=== PATIENT | female | born 1960 | race Caucasian/White ===

== ENCOUNTER 2019-07-13 23:26 | Emergency (ER) | payer OTHER ==
[~2019-07-13] VITALS: Ht 160 cm; Wt 80.3 kg
[2019-07-13 23:34] VITALS: BP 100/70
--- NOTE | 2019-07-13 23:37 | NUR ---
TO LOBBY A/W BED AMBULATORY
[2019-07-14 00:21] LABS: BASOPHILS # (AUTO) 0.1 K/uL (0.00-0.22); BASOPHILS % (AUTO) 0.6 % (0.0-2.0); EOSINOPHILS # (AUTO) 0.6 K/uL (0-0.4); EOSINOPHILS % (AUTO) 6.3 % (0.0-4.0); HEMATOCRIT 36.3 % (36-48); HEMOGLOBIN 11.9 g/dL (12.0-16.0); LYMPHOCYTES # (AUTO) 2.8 K/uL (2.5-16.5); LYMPHOCYTES % (AUTO) 30.5 % (20.5-51.1); MEAN CORPUSCULAR HEMOGLOBIN 27 pg (27-31); MEAN CORPUSCULAR HGB CONC 33 g/dL (33-37); MEAN CORPUSCULAR VOLUME 83.8 fL (80-94); MONOCYTES # (AUTO) 0.6 K/uL (0.8-1.0); MONOCYTES % (AUTO) 6.4 % (1.7-9.3); NEUTROPHILS # (AUTO) 5.1 K/uL (1.8-7.7); NEUTROPHILS % (AUTO) 56.2 % (42.2-75.2); PLATELET COUNT (AUTO) 272 K/uL (140-450); RED BLOOD CELL COUNT(AUTO) 4.33 MIL/uL (4.20-5.40); WHITE BLOOD COUNT (AUTO) 9.1 K/uL (4.8-10.8)
[2019-07-14 00:36] LABS: ANION GAP 12.3 (8-16); CARBON DIOXIDE 29.6 mmol/L (21-32); CREATININE 1.4 mg/dL (0.6-1.3); POTASSIUM 3.9 mmol/L (3.5-5.1)
[2019-07-14 00:42] LABS: ALBUMIN 3.7 g/dL (3.4-5.0); TOTAL BILIRUBIN 0.4 mg/dL (0.0-1.0)
--- NOTE | 2019-07-14 01:13 | NUR ---
PT TAKEN TO BED 1
--- NOTE | 2019-07-14 01:33 | NUR ---
Dr. Aguilar examining patient.
--- NOTE | 2019-07-14 01:36 | NUR ---
59 Y/O FEMALE C/O BILATERAL FOOT SWELLING AND PAIN X 4 DAYS. MINOR SWELLING NOTED, NO VISIBLE DEFORMITIES OR BRUISING. 7/10 ACHING PAIN. PT ABLE TO AMBULATE, PAIN WORSE UPON AMBULATION. +CMS. RR EVEN AND UNLABORED. PT CALM AND PLEASANT. POSITIONED FOR COMFORT, BED LOCKED AND IN LOW POSITION. VSS MEDHX: DM, TIA ALLERGIES: CODIENE
[2019-07-14 01:47] VITALS: BP 100/70
--- NOTE | 2019-07-14 01:47 | NUR ---
Patient discharged with v/s stable. Written and verbal after care instructions given and explained. Patient alert, oriented and verbalized understanding of instructions. Ambulatory with steady gait. All questions addressed prior to discharge. ID band removed. Patient advised to follow up with PMD. Rx of MOTRIN AND KEFLEX given. Patient educated on indication of medication including possible reaction and side effects. Opportunity to ask questions provided and answered.
== END 2019-07-14 01:47 | disposition home or self-care (01) ==
LOC: MED 23:26
DX: L03.116 Cellulitis of left lower limb (principal); L03.115 Cellulitis of right lower limb; F17.210 Nicotine dependence, cigarettes, uncomplicated; I10 Essential (primary) hypertension; Z86.73 Personal history of transient ischemic attack (TIA), and cerebral infarction without residual deficits; Z98.890 Other specified postprocedural states
CPT/HCPCS: 36415; 80053; 83880; 84484; 85025; 99283

== ENCOUNTER 2019-12-24 14:59 | Emergency (ER) | payer OTHER ==
[~2019-12-24] VITALS: Ht 162.6 cm; Wt 90.7 kg
[2019-12-24 15:07] VITALS: BP 134/60
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
[2019-12-24] MEDS ORDERED: KETOROLAC 60 MG/2 ML VIAL IM ONE (15:40)
--- NOTE | 2019-12-24 15:46 | NUR ---
DR. CORDERO AWARE THAT PT CLAIMS TO HAVE KIDNEY FAILURE, PER DR. CONSUELO ANDRADE TO ADMIN THE TORADOL
--- NOTE | 2019-12-24 15:56 | NUR ---
XRAY AT BEDSIDE
--- NOTE | 2019-12-24 16:24 | NUR ---
Patient discharged with v/s stable. Written and verbal after care instructions given and explained. Patient alert, oriented and verbalized understanding of instructions. Ambulatory with steady gait W/ 4 WHEEL WALKER. All questions addressed prior to discharge. ID band removed. Patient advised to follow up with PMD. Rx of TRAMADOL given. Patient educated on indication of medication including possible reaction and side effects. Opportunity to ask questions provided and answered.
[2019-12-24 16:25] VITALS: BP 139/73
== END 2019-12-24 16:24 | disposition home or self-care (01) ==
LOC: MED 14:59
DX: S90.32XA Contusion of left foot, initial encounter (principal); F17.210 Nicotine dependence, cigarettes, uncomplicated; E11.9 Type 2 diabetes mellitus without complications; I10 Essential (primary) hypertension; Z71.6 Tobacco abuse counseling; Z88.5 Allergy status to narcotic agent; Z98.890 Other specified postprocedural states; Z86.73 Personal history of transient ischemic attack (TIA), and cerebral infarction without residual deficits; W22.8XXA Striking against or struck by other objects, initial encounter; Y93.89 Activity, other specified; Y92.89 Other specified places as the place of occurrence of the external cause; Y99.8 Other external cause status
CPT/HCPCS: 29515; 73630; 96372; 99283; J1885; Q0092

== ENCOUNTER 2020-02-07 17:22 | Emergency (ER) | payer OTHER ==
[~2020-02-07] VITALS: Ht 167.6 cm; Wt 59.0 kg
[2020-02-07 17:56] VITALS: BP 145/52
--- NOTE | 2020-02-07 18:03 | NUR ---
AMBULATED TO ROOM 3
--- NOTE | 2020-02-07 19:30 | NUR ---
REPORT GIVEN TO TESS GUZMAN, TRANSFER OF CARE AT THIS TIME
--- NOTE | 2020-02-07 19:35 | NUR ---
59 Y/O FEMALE C/O CHEST PAIN FOR ONE WEEK. PT DECRIBES SENSATIONS "PINS AND NEEDLES" ON HER L UPPER CHEST WIHT L SIDED ARM WEAKNESS. RESP EVEN AND UNLABORED. EQUAL BILAT DUMP TRUCK OPERATOR STRENGTH, NO FACIAL ASYMMETRY NOTED. PUPPILS 2MM, BRISK RETURN, PERRL. PMH: DM, HTN, STAGE 1 KIDNEY FAILURE, 2 CVA, 2 BRAIN ANEURYSMS ALLERGIES: CODEINE
[2020-02-07 19:38] LABS: BASOPHILS # (AUTO) 0.1 K/uL (0.00-0.22); EOSINOPHILS # (AUTO) 0.6 K/uL (0-0.4); HEMOGLOBIN 11.9 g/dL (12.0-16.0); LYMPHOCYTES # (AUTO) 2.5 K/uL (2.5-16.5); LYMPHOCYTES % (AUTO) 26.9 % (20.5-51.1); MEAN CORPUSCULAR HEMOGLOBIN 28 pg (27-31); MEAN CORPUSCULAR HGB CONC 33 g/dL (33-37); MEAN CORPUSCULAR VOLUME 85.7 fL (80-94); MONOCYTES # (AUTO) 0.4 K/uL (0.8-1.0); MONOCYTES % (AUTO) 4.3 % (1.7-9.3); NEUTROPHILS # (AUTO) 5.6 K/uL (1.8-7.7); NEUTROPHILS % (AUTO) 60.8 % (42.2-75.2); PLATELET COUNT (AUTO) 250 K/uL (140-450); RED CELL DISTRIBUTION WIDTH 14.6 % (11.6-13.7); WHITE BLOOD COUNT (AUTO) 9.2 K/uL (4.8-10.8)
[2020-02-07 19:56] LABS: ALBUMIN 3.3 g/dL (3.4-5.0); ANION GAP 14.3 (8-16); CARBON DIOXIDE 24.6 mmol/L (21-32); CREATININE 1.5 mg/dL (0.6-1.3); POTASSIUM 3.9 mmol/L (3.5-5.1); TOTAL BILIRUBIN 0.4 mg/dL (0.0-1.0)
--- NOTE | 2020-02-07 20:24 | NUR ---
Dr. Vargas examining patient.
[2020-02-07 20:35] VITALS: BP 109/61
--- NOTE | 2020-02-07 20:35 | NUR ---
Patient discharged with v/s stable. Written and verbal after care instructions given and explained. Patient verbalized understanding. Ambulatory with steady gait. All questions addressed prior to discharge. Advised to follow up with PMD.
== END 2020-02-07 20:35 | disposition home or self-care (01) ==
LOC: MED 17:22
DX: R07.9 Chest pain, unspecified (principal); E78.5 Hyperlipidemia, unspecified; E11.9 Type 2 diabetes mellitus without complications; I10 Essential (primary) hypertension; N28.9 Disorder of kidney and ureter, unspecified; I63.9 Cerebral infarction, unspecified; I67.1 Cerebral aneurysm, nonruptured; Z98.890 Other specified postprocedural states
CPT/HCPCS: 36415; 71045; 80053; 83880; 84484; 85025; 93005; 99285; Q0092

== ENCOUNTER 2020-04-30 12:03 | Emergency (ER) | payer OTHER ==
[~2020-04-30] VITALS: Ht 162.6 cm; Wt 81.6 kg
--- NOTE | 2020-04-30 12:15 | NUR ---
AMBULATED TO BED 12
[2020-04-30 12:17] VITALS: BP 144/76
--- NOTE | 2020-04-30 12:26 | NUR ---
59 Y/O F C/C LEFT SHOULDER PAIN X 10 WEEKS. PER PT WOKE UP ONE DAY AND FELT PAIN. HAS BEEN TAKEN RX OTC WITH NO RELEASE, R.I.C.E USED WITH NO RELIEF. PAIN /. LIMITED ROM; CMS WNL. PT PRESENTS AMBULATORY,EUPNIC,A/OX4. ALLERGIES CODEINE. HX HTN,DM,STROKE. RX DOES NOT RECALL. NO NVD. SIDE RAIL X1.
[2020-04-30] MEDS: KETOROLAC 30 MG/ML VIAL IM ONE (12:44)
[2020-04-30 13:33] VITALS: BP 135/72
== END 2020-04-30 13:34 | disposition home or self-care (01) ==
LOC: MED 12:03
DX: M25.512 Pain in left shoulder (principal); M79.10 Myalgia, unspecified site; E11.9 Type 2 diabetes mellitus without complications; I63.9 Cerebral infarction, unspecified; I10 Essential (primary) hypertension; Z88.5 Allergy status to narcotic agent
CPT/HCPCS: 96372; 99283; J1885

== ENCOUNTER 2020-05-07 11:53 | Emergency (ER) | payer OTHER ==
[~2020-05-07] VITALS: Ht 162.6 cm; Wt 84.8 kg
[2020-05-07 12:00] VITALS: BP 126/85
--- NOTE | 2020-05-07 12:16 | NUR ---
59 Y/O FEMALE PT C/O PROGRESSIVELY WORSENING LEFT SHOULDER PAIN FOR 3 MONS. DENIES TRAUMA/IMJURY. REPORS HAVING RUNNY NOSE, SNEEZINGS, MILD DRY COUGH, AND SOB FOR 3 DAYS. DENIES FEVER, CHILLS, OR SICK CONTACTS. PMH: HTN, DM, ARTHRITIS
[2020-05-07] MEDS ORDERED: KETOROLAC 30 MG/ML VIAL IM ONE (12:55)
--- NOTE | 2020-05-07 13:06 | NUR ---
Covid swab collected and sent to lab.
[2020-05-07 13:21] VITALS: BP 122/79
--- NOTE | 2020-05-07 13:22 | NUR ---
Patient discharged with v/s stable. Written and verbal after care instructions given and explained. Patient alert, oriented and verbalized understanding of instructions. Ambulatory with steady gait. All questions addressed prior to discharge. ID band removed. Patient advised to follow up with PMD. Rx of Voltaren 1% topical gel, Naproxen 375mg given. Patient educated on indication of medication including possible reaction and side effects. Opportunity to ask questions provided and answered.
== END 2020-05-07 13:22 | disposition home or self-care (01) ==
LOC: MED 11:53
DX: M25.512 Pain in left shoulder (principal); E11.9 Type 2 diabetes mellitus without complications; F17.210 Nicotine dependence, cigarettes, uncomplicated; I10 Essential (primary) hypertension; I63.9 Cerebral infarction, unspecified; Z88.5 Allergy status to narcotic agent; Z20.828 Contact with and (suspected) exposure to other viral communicable diseases
CPT/HCPCS: 82948; 96372; 99283; J1885; U0003

== ENCOUNTER 2020-07-06 03:19 | Emergency (ER) | payer OTHER ==
[~2020-07-06] VITALS: Ht 162.6 cm; Wt 82.1 kg
[2020-07-06] MEDS ORDERED: NACL 0.9% 1,000 ML IV ONE ×2 (03:30→05:50)
[2020-07-06] MEDS ORDERED: ONDANSETRON 4 MG/2 ML VIAL IVP ONE (03:35)
[2020-07-06 03:57] VITALS: BP 121/65
--- NOTE | 2020-07-06 04:00 | NUR ---
to ED bed 12
--- NOTE | 2020-07-06 04:59 | NUR ---
LAB CALLED, BLOOD WAS HEMOLYZED, REDRAW DONE AND LABS WALKED TO LAB
[2020-07-06 05:11] LABS: BASOPHILS # (AUTO) 0.1 K/uL (0.00-0.22); BASOPHILS % (AUTO) 0.7 % (0.0-2.0); EOSINOPHILS # (AUTO) 0.7 K/uL (0-0.4); EOSINOPHILS % (AUTO) 6.1 % (0.0-4.0); HEMATOCRIT 35.3 % (36-48); HEMOGLOBIN 11.6 g/dL (12.0-16.0); LYMPHOCYTES # (AUTO) 2.7 K/uL (2.5-16.5); LYMPHOCYTES % (AUTO) 22.3 % (20.5-51.1); MEAN CORPUSCULAR HEMOGLOBIN 28 pg (27-31); MEAN CORPUSCULAR HGB CONC 33 g/dL (33-37); MEAN CORPUSCULAR VOLUME 84.2 fL (80-94); MONOCYTES # (AUTO) 0.6 K/uL (0.8-1.0); MONOCYTES % (AUTO) 4.8 % (1.7-9.3); NEUTROPHILS # (AUTO) 8.1 K/uL (1.8-7.7); NEUTROPHILS % (AUTO) 66.1 % (42.2-75.2); PLATELET COUNT (AUTO) 246 K/uL (140-450); RED CELL DISTRIBUTION WIDTH 14.1 % (11.6-13.7); WHITE BLOOD COUNT (AUTO) 12.2 K/uL (4.8-10.8)
[2020-07-06 05:41] LABS: ALBUMIN 3.2 g/dL (3.4-5.0); ANION GAP 11.4 (8-16); CARBON DIOXIDE 27.5 mmol/L (21-32); CREATININE 2.3 mg/dL (0.6-1.3); POTASSIUM 3.9 mmol/L (3.5-5.1); TOTAL BILIRUBIN 0.3 mg/dL (0.0-1.0)
--- NOTE | 2020-07-06 06:13 | NUR ---
YASH Vasquez MD AWARE. NS BOLUS ORDERED
--- NOTE | 2020-07-06 06:20 | NUR ---
PT AMBULATED TO RESTROOM WITH STEADY GAIT
--- NOTE | 2020-07-06 06:43 | NUR ---
PT COMING IN DUE TO ELEVATED BS. PT WAS FEELING NAUSEA, DENIES VOMITING. DENIES HAVING ANY PAIN. PT TOOK HER INSULIN AT HOME BUT HER BS DID NOT GO DOWN. A/O X 4. AFEBRILE, DENIES SOB. PT PLACED IN BED, BED IN LOWEST POSITION AND SIDERAIL UP X 1. ALLERGY - CODEINE HX - KIDNEY DISEASE, DM, CVA, HTN, ASTHMA, COPD
--- NOTE | 2020-07-06 07:08 | NUR ---
Pt report given to YOVANNY GUZMAN. Transfer of care at this time.
--- NOTE | 2020-07-06 07:09 | NUR ---
Receive report from MEGAN Morrow, transfer of care at this time.
--- NOTE | 2020-07-06 07:26 | NUR ---
Pt resting, visible equal rise and fall of chest, VSS, will continue to monitor.
[2020-07-06 07:53] VITALS: BP 123/67
--- NOTE | 2020-07-16 16:52 | NUR ---
LATE ENTRY -- NORMAL SALINE ENDED 07/06/20 0761
== END 2020-07-06 07:53 | disposition home or self-care (01) ==
LOC: MED 03:19
DX: E11.65 Type 2 diabetes mellitus with hyperglycemia (principal); N17.9 Acute kidney failure, unspecified; I10 Essential (primary) hypertension; Z86.73 Personal history of transient ischemic attack (TIA), and cerebral infarction without residual deficits; Z88.5 Allergy status to narcotic agent
CPT/HCPCS: 36415; 80053; 82009; 82948; 85025; 96361; 96374; 99283; J7030

== ENCOUNTER 2020-07-11 10:44 | Emergency (ER) | payer OTHER ==
[~2020-07-11] VITALS: Ht 162.6 cm; Wt 82.1 kg
[2020-07-11 11:28] VITALS: BP 124/67
[2020-07-11] MEDS ORDERED: NACL 0.9% 1,000 ML IV ONE (12:40)
--- NOTE | 2020-07-11 12:52 | NUR ---
PT AMB TO BED 11. LAB AT BEDSIDE.
[2020-07-11 13:14] LABS: BASOPHILS # (AUTO) 0.2 K/uL (0.00-0.22); BASOPHILS % (AUTO) 1.4 % (0.0-2.0); EOSINOPHILS # (AUTO) 0.8 K/uL (0-0.4); EOSINOPHILS % (AUTO) 7.3 % (0.0-4.0); HEMATOCRIT 37.2 % (36-48); HEMOGLOBIN 12.3 g/dL (12.0-16.0); LYMPHOCYTES # (AUTO) 2.5 K/uL (2.5-16.5); LYMPHOCYTES % (AUTO) 21.8 % (20.5-51.1); MEAN CORPUSCULAR HEMOGLOBIN 28 pg (27-31); MEAN CORPUSCULAR HGB CONC 33 g/dL (33-37); MEAN CORPUSCULAR VOLUME 84.5 fL (80-94); MONOCYTES # (AUTO) 0.5 K/uL (0.8-1.0); MONOCYTES % (AUTO) 4.2 % (1.7-9.3); NEUTROPHILS # (AUTO) 7.4 K/uL (1.8-7.7); NEUTROPHILS % (AUTO) 65.3 % (42.2-75.2); PLATELET COUNT (AUTO) 301 K/uL (140-450); RED CELL DISTRIBUTION WIDTH 14.1 % (11.6-13.7); WHITE BLOOD COUNT (AUTO) 11.4 K/uL (4.8-10.8)
[2020-07-11 13:18] LABS: APPEARANCE,URINE CLEAR (CLEAR); BILIRUBIN,URINE NEGATIVE (NEGATIVE); BLOOD, URINE NEGATIVE (NEGATIVE); COLOR,URINE YELLOW (YELLOW); NITRITE, URINE NEGATIVE (NEGATIVE); UGLUCOSE 3+ (NEGATIVE)
[2020-07-11 13:29] LABS: LEUKOCYTE ESTERASE ,URINE TRACE (NEGATIVE); RBC,URINE 0-5 /HPF (0-5); WBC,URINE 0-5 /HPF (0-5)
[2020-07-11 13:55] LABS: ALBUMIN 3.6 g/dL (3.4-5.0); ANION GAP 11.8 (8-16); CARBON DIOXIDE 27.9 mmol/L (21-32); MAGNESIUM 1.9 mg/dL (1.8-2.4); POTASSIUM 4.7 mmol/L (3.5-5.1); TOTAL BILIRUBIN 0.4 mg/dL (0.0-1.0)
[2020-07-11 14:14] LABS: CREATININE 1.9 mg/dL (0.6-1.3)
[2020-07-11 14:49] VITALS: BP 121/78
--- NOTE | 2020-07-16 16:56 | NUR ---
LATE ENTRY -- NORMAL SALINE STARTED AT 1240 07/11/20 ENDED 07/11/20 AT 1340
== END 2020-07-11 14:49 | disposition home or self-care (01) ==
LOC: MED 10:44
DX: R73.9 Hyperglycemia, unspecified (principal); J44.9 Chronic obstructive pulmonary disease, unspecified; I10 Essential (primary) hypertension; Z86.73 Personal history of transient ischemic attack (TIA), and cerebral infarction without residual deficits; Z88.5 Allergy status to narcotic agent
CPT/HCPCS: 36415; 80053; 81001; 82150; 83690; 83735; 85025; 96360; 99283; G0482; J7030; 81003

== ENCOUNTER 2020-09-10 10:56 | Inpatient (IN) | payer OTHER, SELFPAY ==
[~2020-09-10] VITALS: Ht 162.6 cm; Wt 82.1 kg
[2020-09-10 11:12] VITALS: BP 198/62
--- NOTE | 2020-09-10 11:26 | NUR ---
PATIENT WHEELCHAIR ASSISTED TO BED 10.
--- NOTE | 2020-09-10 11:27 | NUR ---
CALLED CT DEPT TO ACTIVATE CODE BRAIN PER DR. GERMAIN. S/W WILL IN RAD DEPT.
--- NOTE | 2020-09-10 11:30 | NUR ---
PT TAKEN TO CT VIA CASE
--- NOTE | 2020-09-10 11:40 | NUR ---
PT BACK FROM CT
[2020-09-10 12:19] LABS: ALBUMIN 3.3 g/dL (3.4-5.0); ANION GAP 15.4 (8-16); CARBON DIOXIDE 23.1 mmol/L (21-32); CREATININE 2.7 mg/dL (0.6-1.3); POTASSIUM 4.5 mmol/L (3.5-5.1); TOTAL BILIRUBIN 0.5 mg/dL (0.0-1.0)
[2020-09-10] MEDS ORDERED: NACL 0.9% 1,000 ML IV ONE (12:25)
[2020-09-10 13:15] LABS: BASOPHILS # (AUTO) 0.1 K/uL (0.00-0.22); BASOPHILS % (AUTO) 0.9 % (0.0-2.0); EOSINOPHILS # (AUTO) 0.8 K/uL (0-0.4); EOSINOPHILS % (AUTO) 7.3 % (0.0-4.0); HEMATOCRIT 36.2 % (36-48); HEMOGLOBIN 11.9 g/dL (12.0-16.0); LYMPHOCYTES # (AUTO) 2.1 K/uL (2.5-16.5); LYMPHOCYTES % (AUTO) 17.7 % (20.5-51.1); MEAN CORPUSCULAR HEMOGLOBIN 27 pg (27-31); MEAN CORPUSCULAR HGB CONC 33 g/dL (33-37); MEAN CORPUSCULAR VOLUME 83.4 fL (80-94); MONOCYTES # (AUTO) 0.5 K/uL (0.8-1.0); MONOCYTES % (AUTO) 4.1 % (1.7-9.3); NEUTROPHILS # (AUTO) 8.1 K/uL (1.8-7.7); PLATELET COUNT (AUTO) 269 K/uL (140-450); RED BLOOD CELL COUNT(AUTO) 4.35 MIL/uL (4.20-5.40); WHITE BLOOD COUNT (AUTO) 11.6 K/uL (4.8-10.8)
[2020-09-10 13:17] LABS: APPEARANCE,URINE HAZY (CLEAR); BILIRUBIN,URINE NEGATIVE (NEGATIVE); BLOOD, URINE 3+ (NEGATIVE); COLOR,URINE YELLOW (YELLOW); LEUKOCYTE ESTERASE ,URINE TRACE (NEGATIVE); NITRITE, URINE NEGATIVE (NEGATIVE); PH,URINE 5.5 (5.0-9.0); UGLUCOSE NEGATIVE (NEGATIVE)
[2020-09-10 13:19] LABS: RBC,URINE 50-80 /HPF (0-5); WBC,URINE 0-5 /HPF (0-5)
[2020-09-10 13:20] LABS: URINE AMORPHOUS URATE 1+ /HPF (None Seen)
[2020-09-10 13:27] LABS: BARBITURATE, URINE NEGATIVE ng/ml (NEG <=200); BENZODIAZEPINE, URINE NEGATIVE ng/mL (NEG <=200); CANNABINOID, URINE NEGATIVE ng/mL (NEG <=50); COCAINE, URINE NEGATIVE ng/mL (NEG <=300); OPIATE, URINE NEGATIVE ng/mL (NEG <=2000); PHENCYCLIDINE SCREEN,URINE NEGATIVE ng/mL (NEG <=25)
--- NOTE | 2020-09-10 13:48 | NUR ---
PT ON THE PHONE IN ROOM TALKING, SPEECH IS CLEAR, DOES NOT APPEAR IN DISTRESS AT THIS TIME.
[2020-09-10] MEDS ORDERED: cefTRIAXone 1,000 MG VIAL ONE (14:07)
--- NOTE | 2020-09-10 14:26 | NUR ---
LEVI PETERS SWABBED AND WALKED TO LAB
[2020-09-10] MEDS ORDERED: ONDANSETRON 4 MG/2 ML VIAL IVP PRN (14:35)
[2020-09-10] MEDS ORDERED: CLONIDINE HYDROCHLORIDE 0.1 MG TAB PO PRN (14:40)
[2020-09-10] MEDS ORDERED: ASPI-1822 PO (15:15)
[2020-09-10] MEDS ORDERED: HYDR-1096 PO (15:15)
[2020-09-10] MEDS ORDERED: INSU100V3 SQ (15:15)
[2020-09-10] MEDS ORDERED: INSU100I7 SQ (15:15)
[2020-09-10] MEDS ORDERED: VIT1TABL36 PO (15:15)
[2020-09-10] MEDS ORDERED: BUSP-83 PO (15:15)
[2020-09-10] MEDS ORDERED: AMLO10TA PO (15:15)
[2020-09-10] MEDS ORDERED: BENA40TA PO (15:15)
[2020-09-10] MEDS ORDERED: ATOR40TA PO (15:15)
[2020-09-10 15:55] VITALS: BP 109/56
--- NOTE | 2020-09-10 15:55 | NUR ---
PT ARRIVED FROM ED TO UNIT VIA GURNEY. PT WITH GENERALIZED WEAKNESS. AAOX4, ABLE TO MAKE NEEDS KNOWN. AMBULATORY. RESPIRATIONS ARE EVEN AND UNLABORED TO ROOM AIR. ABDOMEN IS SOFT AND NON-TENDER. SKIN IS JAUNDICED, WARM, DRY, AND INTACT. PT WITH IV ACCESS ON LEFT WRIST 22G, PATENT AND INTACT. CHRONIC BILATERAL SHOULDERS PAIN. CONNECTED TO TELE MONITOR, VS TAKEN, MRSA SWAB COLLECTED. ORIENTED PT TO THE HOSPITAL ENVIRONMENT. SAFETY MEASURES IN PLACE. WILL CONTINUE TO MONITOR.
--- NOTE | 2020-09-10 15:56 | NUR ---
Patient will be admitted to care of YADIRA ZUNIGA. Admited to TELEMETRY. Will go to room 123A. Belongings list completed. Report to ERIC GUZMAN.
--- NOTE | 2020-09-10 17:17 | NUR ---
PATIENT ASLEEP IN BED WITH RIGHT LATERAL POSITION. NO ACUTE DISTRESS NOTED, WILL CONTINUE TO MONITOR.
[2020-09-10] MEDS: NACL 0.9% 1,000 ML IV SCH (18:32)
--- NOTE | 2020-09-10 19:20 | NUR ---
RECEIVED BEDSIDE REPORT FROM DAY SHIFT NURSE. PATIENT IS AWAKE, TALKING ON THE PHONE. RESPIRATION EVEN UNLABORED ON ROOM AIR. NO DISTRESS NOTED. SKIN IS WARM AND DRY. IV PATENT AND INTACT. PLAN OF CARE WAS DISCUSSED. ALL SAFETY MEASURES IN PLACE. BED IS AT LOW POSITION. CALL LIGHT WITHIN REACH. WILL CONTINUE TO MONITOR.
--- NOTE | 2020-09-10 19:25 | NUR ---
ENDORSED PATIENT TO SEAL MIXER RN FOR CONTINUITY OF CARE, PATIENT IN STABLE CONDITION.
[2020-09-10 20:00] VITALS: BP 101/53
[2020-09-10] MEDS ORDERED: DEXTROSE 50% 50 ML SYR IVP PRN (21:20)
[2020-09-10] MEDS ORDERED: INSULIN LANTUS 100 UNITS/ML 10 ML VIAL SUBQ SCH (21:28)
[2020-09-10] MEDS: INSULIN LISPRO SLIDING SCALE 100 UNITS/ML VIAL SUBQ PRN (21:42)
[2020-09-10] MEDS: HYDROXYZINE HYDROCHLORIDE 25 MG TAB PO SCH (21:43)
[2020-09-10] MEDS: BLOOD GLUCOSE MONITORING 1 DEV DEV FS SCH (21:43)
--- NOTE | 2020-09-10 21:45 | NUR ---
ALL SCHEDULED MEDS WERE GIVEN PER ORDER. NO ASE NOTED. WILL CONTINUE TO MONITOR
--- NOTE | 2020-09-10 21:45 | NUR ---
PER PATIENT SHE TAKES LANTUS AT HOME 25 UNITS HS. PER MD ANDRADE TO GIVE.
[2020-09-10] MEDS: traMADol 50 MG TAB PO PRN (22:17)
--- NOTE | 2020-09-10 22:20 | NUR ---
PATIENT COMPLAINED OF SHOULDER PAIN. PRN PAIN MED ADMINISTER PER ORDER. WILL CONTINUE TO MONITOR
[2020-09-11] VITALS: BP 131/76
--- NOTE | 2020-09-11 00:20 | NUR ---
VITALS WERE TAKEN. PATIENT COMPLAINING OF MILD SHOULDER PAIN 3. PRN PAIN MED ADMINISTERED PER ORDER. WILL CONTINUE TO MONITOR
[2020-09-11] MEDS: ACETAMINOPHEN 325 MG TAB PO PRN ×2 (00:21→18:21)
[2020-09-11] MEDS: NACL 0.9% 1,000 ML IV SCH ×3 (00:35→20:35)
--- NOTE | 2020-09-11 03:32 | NUR ---
MADE ROUNDS. PATIENT SLEEPING RESPIRATION EVEN UNLABORED ON ROOM AIR. NO DISTRESS NOTED. WILL CONTINUE TO MONITOR
[2020-09-11 04:00] VITALS: BP 94/48
[2020-09-11 06:01] LABS: BASOPHILS # (AUTO) 0.1 K/uL (0.00-0.22); BASOPHILS % (AUTO) 1.1 % (0.0-2.0); EOSINOPHILS # (AUTO) 0.8 K/uL (0-0.4); EOSINOPHILS % (AUTO) 7.9 % (0.0-4.0); HEMATOCRIT 31.2 % (36-48); HEMOGLOBIN 10.3 g/dL (12.0-16.0); LYMPHOCYTES # (AUTO) 2.5 K/uL (2.5-16.5); MEAN CORPUSCULAR HEMOGLOBIN 28 pg (27-31); MEAN CORPUSCULAR HGB CONC 33 g/dL (33-37); MEAN CORPUSCULAR VOLUME 83.5 fL (80-94); MONOCYTES # (AUTO) 0.5 K/uL (0.8-1.0); MONOCYTES % (AUTO) 5.5 % (1.7-9.3); NEUTROPHILS # (AUTO) 5.9 K/uL (1.8-7.7); NEUTROPHILS % (AUTO) 60.5 % (42.2-75.2); PLATELET COUNT (AUTO) 235 K/uL (140-450); RED BLOOD CELL COUNT(AUTO) 3.74 MIL/uL (4.20-5.40); RED CELL DISTRIBUTION WIDTH 13.8 % (11.6-13.7); WHITE BLOOD COUNT (AUTO) 9.8 K/uL (4.8-10.8)
[2020-09-11 06:20] LABS: ALBUMIN 2.8 g/dL (3.4-5.0); ANION GAP 11.4 (8-16); CARBON DIOXIDE 24.8 mmol/L (21-32); CREATININE 1.9 mg/dL (0.6-1.3); MAGNESIUM 1.9 mg/dL (1.8-2.4); POTASSIUM 4.2 mmol/L (3.5-5.1); TOTAL BILIRUBIN 0.2 mg/dL (0.0-1.0)
[2020-09-11] MEDS: INSULIN LISPRO SLIDING SCALE 100 UNITS/ML VIAL SUBQ PRN ×3 (06:31→20:27)
[2020-09-11] MEDS: BLOOD GLUCOSE MONITORING 1 DEV DEV FS SCH ×4 (06:32→20:29)
--- NOTE | 2020-09-11 07:14 | NUR ---
ENDORSED PATIENT TO DAY SHIFT NURSE FOR CONTINUITY OF CARE
--- NOTE | 2020-09-11 07:15 | NUR ---
RECEIVED ENDORSEMENT FOR CONTINUATION PLAN OF CARE. PATIENT IS IN BED AOX4. IV IN PLACE AND INTACT. SAFETY MEASURES ARE IN PLACE. CALL LIGHTS WITHIN REACH. WILL CONTINUE TO MONITOR NEEDED.
[2020-09-11] MEDS ORDERED: BLOOD GLUCOSE MONITORING 1 DEV DEV FS SCH (07:30)
[2020-09-11 08:00] VITALS: BP 123/69
--- NOTE | 2020-09-11 09:19 | NUR ---
PATIENT HAS BEEN SCREENED AND CATEGORIZED HIGH NUTRITION RISK. PATIENT WILL BE SEEN WITHIN 1-2 DAYS OF ADMISSION. 09/11/20-09/12/[address]
--- NOTE | 2020-09-11 09:30 | NUR ---
MADE ROUNDS AT THIS TIME PT IS SLEEPING NO DISTRESS NOTED DENIES PAIN.
--- NOTE | 2020-09-11 11:27 | NUR ---
BLOOD SUGAR 214 INSULIN COVERAGE GIVEN PT IS STABLE.
[2020-09-11 12:00] VITALS: BP 128/58
--- NOTE | 2020-09-11 12:56 | NUR ---
SOCIAL WORK NOTE: Patient's Orientation Unable To Assess Information Provided By NARCISA PETERCorina - CAREGIVER Comments SW WAS UNABLE TO MEET PATIENT AT BEDSIDE. SW COMPLETED ASSESSMENT WITH PATIENT'S CAREGIVER. CAREGIVER PROVIDED PHONE NUMBER TO SHERMAN FERNANDES, DAUGHTER OF PATIENT. Grounds Manager, Realtionship and Phone Number NARCISA REINOSO CAREGIVER [phone] SHERMAN FERNANDES DAUGHTER [phone] YANA VELA MOTHER [phone] Healthcare Power of Dye Tub Operator No Does Patient Have a POLST No Identifying Problems No Social Work Triggers Is A Social Work Consult Needed No Mandate Report Filed No Explanation Of Identifying Problems PATIENT IS A 60-YEAR-OLD FEMALE ADMITTED FOR UTI AND HERMAN. PATIENT HAS PMHX OF CEREBROVASCULAR ACCIDE. Admitted From Home Pre-Admission Level Of Functioning Status Assist With ADL Level Of Functioning Comment PER CAREGIVER, PATIENT NEEDS ASSISTANCE WITH CLEANING, PREPARING, MEALS, SHOWERING, TRANSPORTATION, AND CHANGING CLOTHES. Prior Resources/Services Used In Last [address] [facility] Prior Resources/Service Comments PATIENT RECEIVES [address] A MON[address] [facility]. Prior DME No Prior DME Used Dialysis Comments N/A Living Situation Apartment Lives With Family Patient Had Caregiver Yes Name and Contact Number Of Designated Caregiver NARCISA REINOSO - [phone] Home Support No Caregiver Issues Financial Issues No Known Financial Issue Referral To The Financial Counselor Needed No Factors/Needs No D/C Needs Identified Pt/Rep Participated In Discharge Plan Yes Patient/Family Agress With Discharge Plan Yes Discharge Plan Comments TENTATIVE DISCHARGE PLAN IS FOR PATIENT TO RETURN HOME. DC Plan Status Initiated
--- NOTE | 2020-09-11 13:09 | NUR ---
DC PLANNIN YRS OLD FEMALE PATIENT WAS ADMITTED FROM HOME WITH A DX OF UTI, HERMAN . PT HAS A HX OF HTN, DM, CHOLESTEROL, CKD AND CVA WITH MILD RIGHT SIDED WEAKNESS . CT HEAD SHOWED NO ACUTE INTRACRANIAL ABNORMALITY. CXR NO ACUTE DISEASE. RAPID COVID TEST NEGATIVE. BLOOD AND URINE CULTURE PENDING. STARTED IV ABX ROCEPHIN AND CONTINUED HOME MEDS. CONSULTED WITH TANK BUILDER HELPER. DC PLAN TO GO HOME WHEN STABLE. CM TO FOLLOW Addendum: 09/12/20 at 1216 by Lacey Davis CM DC TRAFFIC ATTENDANT: FAXED ORDER FOR HOME HEALTH SAFETY EVAL TO [facility]. SPOKE TO RADHA AT [facility] [phone] THEY ARE REVIEWING BUT MOST LIKELY CAN ACCEPT PATIENT. SHE WILL CONTACT ME BACK SHORTLY. PATIENT IS AGREEABLE TO HOME HEALTH. Addendum: 09/12/20 at 1219 by Lacey Davis CM DC TRAFFIC ATTENDANT: RECEIVED A CALL BACK FROM RADHA THEY ARE ABLE TO ACCEPT PATIENT.
[2020-09-11] MEDS: traMADol 50 MG TAB PO PRN (14:32)
--- NOTE | 2020-09-11 15:13 | NUR ---
09/11/20 RD INITIAL ASSESSMENT COMPLETED PLEASE REFER TO NUTRITION ASSESSMENT UNDER CARE ACTIVITY FOR ESTIMATED NUTRITIONAL NEEDS. 1. CONTINUE CCHO, CARDIAC AND MECHANICAL SOFT DIET TOLERATED 2. RD PROVIDED NUTRITION EDUCATION ON DIABETES. PT ACCEPTED 3. RD TO FOLLOW-UP 3-5 DAYS, MODERATE RISK JOSE VELA RD
[2020-09-11 16:00] VITALS: BP 110/53
--- NOTE | 2020-09-11 16:27 | NUR ---
BLOOD SUGAR 134 MG/DL NO INSULIN COVERAGE.
--- NOTE | 2020-09-11 18:41 | NUR ---
PATIENT FEELS NAUSEOUS AND VOMITED, GAVE MEDICATION FOR VOMITING.
--- NOTE | 2020-09-11 19:18 | NUR ---
RECEIVED REPORT FROM DAY SHIFT NURSE. PATIENT IS AWAKE, ALERT, AND COOPERATIVE. RESPIRATION EVEN UNLABORED ON ROOM AIR. NO DISTRESS NOTED. SKIN IS WARM AND DRY. IV PATENT AND INTACT. PLAN OF CARE WAS DISCUSSED. ALL SAFETY MEASURES IN PLACE. BED IS AT LOW POSITION. CALL LIGHT WITHIN REACH. WILL CONTINUE TO MONITOR
--- NOTE | 2020-09-11 19:23 | NUR ---
ENDORSED CONTINUATION PLAN OF CARE TO PARTS CONSULTANT NURSE. PATIENT IN STABLE CONDITION
[2020-09-11 20:00] VITALS: BP 98/86
[2020-09-11] MEDS ORDERED: ATORVASTATIN 20 MG TAB ONE (20:18)
[2020-09-11] MEDS: HYDROXYZINE HYDROCHLORIDE 25 MG TAB PO SCH (20:19)
--- NOTE | 2020-09-11 20:30 | NUR ---
ALL SCHEDULED MEDS WERE GIVEN PER ORDER. WILL CONTINUE TO MONITOR
[2020-09-11] MEDS ORDERED: HYDROXYZINE HYDROCHLORIDE 25 MG TAB PO SCH (21:00)
[2020-09-11] MEDS ORDERED: INSULIN LANTUS 100 UNITS/ML 10 ML VIAL SUBQ SCH ×2 (21:00)
--- NOTE | 2020-09-11 21:24 | NUR ---
MADE ROUNDS. PATIENT ASKED FOR CRACKERS. PROVIDED CRACKERS. WILL CONTINUE TO MONITOR
[2020-09-12] VITALS: BP 125/82
--- NOTE | 2020-09-12 00:25 | NUR ---
HELPED PT AMBULATE TO THE BATHROOM
--- NOTE | 2020-09-12 01:29 | NUR ---
MADE ROUNDS. PATIENT SLEEPING RESPIRATION EVEN UNLABORED ON ROOM AIR. NO DISTRESS NOTED. WILL CONTINUE TO MONITOR
[2020-09-12] MEDS: traMADol 50 MG TAB PO PRN (03:41)
--- NOTE | 2020-09-12 03:41 | NUR ---
PATIENT WOKE UP IN PAIN. COMPLAINING 6/10 SHOULDER PAIN NON-RADIATING. PRN PAIN MED ADMINISTER PER ORDER. WILL CONTINUE TO MONITOR
[2020-09-12 04:00] VITALS: BP 112/79
--- NOTE | 2020-09-12 04:01 | NUR ---
PATIENT ACCIDENTALLY PULLED HER IV. NO ACTIVE BLEEDING NOTED. CANNULA TIP INTACT. INSERTED NEW ONE TO THE RIGHT FOREARM 22G. TOLERATED IT WELL.
[2020-09-12 06:21] LABS: BASOPHILS # (AUTO) 0.1 K/uL (0.00-0.22); EOSINOPHILS # (AUTO) 0.7 K/uL (0-0.4); EOSINOPHILS % (AUTO) 8.1 % (0.0-4.0); HEMATOCRIT 31.7 % (36-48); HEMOGLOBIN 10.6 g/dL (12.0-16.0); LYMPHOCYTES # (AUTO) 2.2 K/uL (2.5-16.5); LYMPHOCYTES % (AUTO) 24.9 % (20.5-51.1); MEAN CORPUSCULAR HEMOGLOBIN 28 pg (27-31); MEAN CORPUSCULAR HGB CONC 34 g/dL (33-37); MEAN CORPUSCULAR VOLUME 82.2 fL (80-94); MONOCYTES # (AUTO) 0.4 K/uL (0.8-1.0); MONOCYTES % (AUTO) 4.4 % (1.7-9.3); NEUTROPHILS # (AUTO) 5.4 K/uL (1.8-7.7); NEUTROPHILS % (AUTO) 61.6 % (42.2-75.2); PLATELET COUNT (AUTO) 224 K/uL (140-450); RED BLOOD CELL COUNT(AUTO) 3.85 MIL/uL (4.20-5.40); RED CELL DISTRIBUTION WIDTH 14.2 % (11.6-13.7); WHITE BLOOD COUNT (AUTO) 8.7 K/uL (4.8-10.8)
[2020-09-12] MEDS: BLOOD GLUCOSE MONITORING 1 DEV DEV FS SCH ×2 (06:30→11:35)
[2020-09-12 06:31] LABS: ALBUMIN 2.8 g/dL (3.4-5.0); ANION GAP 11.2 (8-16); CREATININE 1.5 mg/dL (0.6-1.3); MAGNESIUM 1.8 mg/dL (1.8-2.4); POTASSIUM 4.2 mmol/L (3.5-5.1); THYROID STIMULATING HORMONE 2.43 uIU/mL (0.34-3.74); TOTAL BILIRUBIN 0.2 mg/dL (0.0-1.0)
[2020-09-12] MEDS: NACL 0.9% 1,000 ML IV SCH (06:52)
--- NOTE | 2020-09-12 06:56 | NUR ---
PATIENT WANTS TO TAKE HER HOME MEDS [facility]. EXPLAINED TO THE PATIENT THAT DOCTOR NEEDS TO APPROVE THE MEDICATION PRIOR TO TAKING IT. PATIENT VERBALIZE UNDERSTANDING. WILL ENDORSED TO DAY SHIFT NURSE TO FOLLOW UP WITH MD.
--- NOTE | 2020-09-12 07:13 | NUR ---
ENDORSED PATIENT TO DAY SHIFT NURSE FOR CONTINUITY OF CARE
--- NOTE | 2020-09-12 07:15 | NUR ---
RECEIVED ENDORSEMENT FROM MOTION PICTURE EQUIPMENT SUPERVISOR NURSE FOR CONTINUATION PLAN OF CARE. PATIENT IN BED AOX4. IV SITE IS IN PLACE AND INTACT. PATIENT IS ABLE TO VERBALIZE NEEDS. SAFETY MEASURES ARE IN PLACE. CALL LIGHT WITHIN REACH. WILL CONTINUE TO MONITOR NEEDED.
[2020-09-12 08:00] VITALS: BP 123/62
--- NOTE | 2020-09-12 08:40 | NUR ---
MEDICATION DUE GIVEN CHECK VITAL SIGNS PRIOR TO MEDICATION BP 123/62 UT 71. PT IS STABLE AND AWAKE. NO DISTRESS NOTED.
[2020-09-12] MEDS ORDERED: ASPIRIN 81 MG TAB.CHEW PO SCH (09:00)
[2020-09-12] MEDS ORDERED: BENAZEPRIL 20 MG TAB PO SCH (09:00)
[2020-09-12] MEDS ORDERED: amLODIPine 5 MG TAB PO SCH (09:00)
[2020-09-12] MEDS ORDERED: CEPH500C16 PO (11:07)
--- NOTE | 2020-09-12 11:30 | NUR ---
BLOOD SUGAR 158 MG/DL INSULIN COVERAGE GIVEN
[2020-09-12] MEDS: INSULIN LISPRO SLIDING SCALE 100 UNITS/ML VIAL SUBQ PRN (11:40)
[2020-09-12 12:42] VITALS: BP 123/62
--- NOTE | 2020-09-12 13:40 | NUR ---
PATIENT HAS BEEN DISCHARGED TO HOME WITH HOME HEALTH CONTACTED NAMED [facility]. DISCHARGE INSTRUCTIONS WERE GIVEN. PATIENT WAS MADE AWARE TO FOLLOW UP WITH MEDICAL DOCTOR AFTER 1 WEEK FOR CHECK UP. IV CATH REMOVED. NAME BANDS REMOVED. PATIENTS BELONGINGS WERE WITH PATIENT [facility]. PATIENT WAS PICKED UP BY FAMILY MEMBER.
[2020-09-12] MEDS ORDERED: ATORVASTATIN 20 MG TAB PO SCH (21:00)
[2020-09-13] MEDS ORDERED: busPIRone 5 MG TAB PO SCH (09:00)
== END 2020-09-12 13:40 | disposition home health service (06) | DRG 463 ==
LOC: MED 10:56 → MTU 14:38
PROVIDERS: ADMIT Internal Medicine; ATTEND Internal Medicine
DX: N39.0 Urinary tract infection, site not specified (principal); E11.22 Type 2 diabetes mellitus with diabetic chronic kidney disease; N18.9 Chronic kidney disease, unspecified; E66.9 Obesity, unspecified; Z88.5 Allergy status to narcotic agent; Z20.822 Contact with and (suspected) exposure to COVID-19; Z86.73 Personal history of transient ischemic attack (TIA), and cerebral infarction without residual deficits; J44.9 Chronic obstructive pulmonary disease, unspecified; E11.65 Type 2 diabetes mellitus with hyperglycemia; I12.9 Hypertensive chronic kidney disease with stage 1 through stage 4 chronic kidney disease, or unspecified chronic kidney disease; Z68.31 Body mass index [BMI] 31.0-31.9, adult; N17.9 Acute kidney failure, unspecified
CPT/HCPCS: 36415; 70450; 71045; 76770; 80053; 80305; 81001; 82140; 82948; 83605; 83735; 84443; 85025; 85610; 85730; 87040; 87081; 87086; 93005; 96361; 96365; 97116; 97163-GP; 97530; 99285; G0482; J0696; J1815; J2405; J7030; J7060

== ENCOUNTER 2023-08-08 02:07 | Emergency (ER) | payer OTHER ==
[~2023-08-08] VITALS: Ht 165.1 cm; Wt 83.5 kg
[~2023-08-08 02:07] MED LIST: AMLO10TA PO; ASPI-1822 PO; ATOR40TA PO; BENA40TA PO; BUSP-83 PO; CEPH500C16 PO; HYDR-1096 PO; INSU100I7 SQ; INSU100V3 SQ; VIT1TABL36 PO
[2023-08-08 02:13] VITALS: BP 116/67; PULSE 90; RESP 18; TEMP 97.7; O2SAT 95
[2023-08-08] MEDS ORDERED: MORPHINE SULFATE 4 MG/ML SYR IM ONE (02:25)
[2023-08-08] MEDS ORDERED: IBUP-2230 PO (02:38)
[2023-08-08] MEDS ORDERED: OXYC5TAB4 PO (02:39)
[2023-08-08 02:44] VITALS: O2SAT 95
[2023-08-08 02:45] VITALS: BP 100/55; TEMP 98
[2023-08-08 02:59] VITALS: PULSE 92; RESP 15; O2SAT 95
== END 2023-08-08 03:00 | disposition home or self-care (01) ==
LOC: MED 02:07
DX: M79.604 Pain in right leg (principal); J44.9 Chronic obstructive pulmonary disease, unspecified; E11.9 Type 2 diabetes mellitus without complications; I10 Essential (primary) hypertension; Z86.73 Personal history of transient ischemic attack (TIA), and cerebral infarction without residual deficits; Z87.448 Personal history of other diseases of urinary system; Z79.82 Long term (current) use of aspirin; Z79.899 Other long term (current) drug therapy; Z79.2 Long term (current) use of antibiotics; Z88.5 Allergy status to narcotic agent
CPT/HCPCS: 96372; 99283; J2270

== ENCOUNTER 2023-11-27 21:47 | Emergency (ER) | payer OTHER ==
[~2023-11-27] VITALS: Ht 165.1 cm; Wt 82.6 kg
[~2023-11-27 21:47] MED LIST changes: +IBUP-2230 PO; +OXYC5TAB4 PO
[2023-11-27 22:00] VITALS: BP 130/74; PULSE 99; RESP 19; TEMP 98.1; O2SAT 96
[2023-11-27 23:05] LABS: BASOPHILS % (AUTO) 0.2 % (0.0-2.0); EOSINOPHILS # (AUTO) 0.3 K/uL (0-0.4); EOSINOPHILS % (AUTO) 2.3 % (0.0-4.0); HEMATOCRIT 41.3 % (36-48); HEMOGLOBIN 13.6 g/dL (12.0-16.0); LYMPHOCYTES % (AUTO) 22.3 % (20.5-51.1); MEAN CORPUSCULAR HEMOGLOBIN 29 pg (27-31); MEAN CORPUSCULAR HGB CONC 33 g/dL (33-37); MEAN CORPUSCULAR VOLUME 87.9 fL (80-94); MONOCYTES # (AUTO) 0.6 K/uL (0.8-1.0); MONOCYTES % (AUTO) 4.2 % (1.7-9.3); NEUTROPHILS # (AUTO) 9.5 K/uL (1.8-7.7); PLATELET COUNT (AUTO) 297 K/uL (140-450); RED CELL DISTRIBUTION WIDTH 17.9 % (11.6-13.7); WHITE BLOOD COUNT (AUTO) 13.4 K/uL (4.8-10.8)
[2023-11-27 23:39] LABS: ANION GAP 14.4 (8-16); CALCIUM 8.9 mg/dL (8.5-10.1); CARBON DIOXIDE 26.1 mmol/L (21-32); CREATININE 1.5 mg/dL (0.6-1.3); POTASSIUM 4.5 mmol/L (3.5-5.1)
== END 2023-11-28 01:41 | disposition home or self-care (01) ==
LOC: MED 21:47
DX: R60.0 Localized edema (principal); J44.9 Chronic obstructive pulmonary disease, unspecified; I12.9 Hypertensive chronic kidney disease with stage 1 through stage 4 chronic kidney disease, or unspecified chronic kidney disease; E11.22 Type 2 diabetes mellitus with diabetic chronic kidney disease; N18.9 Chronic kidney disease, unspecified; Z86.73 Personal history of transient ischemic attack (TIA), and cerebral infarction without residual deficits; Z79.1 Long term (current) use of non-steroidal anti-inflammatories (NSAID); Z79.899 Other long term (current) drug therapy; Z79.82 Long term (current) use of aspirin; Z79.4 Long term (current) use of insulin; Z88.5 Allergy status to narcotic agent
CPT/HCPCS: 36415; 80048; 83880; 84484; 85025; 93005; 93970; 99284; Q0092

== ENCOUNTER 2024-02-20 00:03 | Emergency (ER) | payer OTHER ==
[~2024-02-20] VITALS: Ht 165.1 cm; Wt 83.0 kg
[2024-02-20 00:25] VITALS: BP 152/90; PULSE 116; RESP 16; TEMP 97.7; O2SAT 98
== END 2024-02-20 01:40 | disposition left against medical advice (07) ==
LOC: MED 00:03
DX: L53.9 Erythematous condition, unspecified (principal); Z53.21 Procedure and treatment not carried out due to patient leaving prior to being seen by health care provider

== ENCOUNTER 2024-05-12 10:12 | Day surgery (SDC) | payer OTHER ==
[~2024-05-12] VITALS: Ht 165.1 cm; Wt 82.1 kg
[2024-05-12] MEDS ORDERED: MIDAZOLAM 5 MG/5 ML VIAL ONE (11:39)
[2024-05-12] MEDS ORDERED: fentaNYL citrate 0.05 MG/ML VIAL ONE (11:39)
[2024-05-12] MEDS ORDERED: LIDOCAINE 2% 100 MG/5 ML UJET TP ONE (11:42)
[2024-05-12] MEDS: MIDAZOLAM 2 MG/2 ML VIAL IVP ONE (11:46)
== END 2024-05-12 13:40 | disposition home or self-care (01) ==
LOC: MDS 10:12 → MMU 10:39 → MDS 13:40
PROVIDERS: ATTEND Internal Medicine Gastroenterology
DX: R11.2 Nausea with vomiting, unspecified (principal); I10 Essential (primary) hypertension; E11.9 Type 2 diabetes mellitus without complications; E78.00 Pure hypercholesterolemia, unspecified; F17.210 Nicotine dependence, cigarettes, uncomplicated; Z88.5 Allergy status to narcotic agent; Z86.0100 Personal history of colon polyps, unspecified; Z86.73 Personal history of transient ischemic attack (TIA), and cerebral infarction without residual deficits; Z79.899 Other long term (current) drug therapy
CPT/HCPCS: 36415; 43239; 82948; 86677; J2250; J3010